=== PATIENT | male | born 2000 | race American Indian/Alaskan Native ===

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

== ENCOUNTER 2022-06-12 15:35 | Emergency (ER) | payer BC, OTHER ==
[2022-06-12 16:35] LABS: CHLORIDE,CL 100 mmol/L (98-107); SODIUM,NA 139 mmol/L (136-145)
[2022-06-12 16:36] LABS: ESTIMATED GFR 114 mL/min (>=60)
== END 2022-06-12 17:03 | disposition home or self-care (01) ==
LOC: DL.ED 15:35
DX: R07.89 Other chest pain (principal); K22.4 Dyskinesia of esophagus
CPT/HCPCS: 36415; 71046; 80053; 84484; 85025; 85379; 86140; 93005; 93010; 99284; 99285